=== PATIENT | male | born 1980 | race Caucasian/White ===

== ENCOUNTER 2018-08-02 14:15 | Emergency (ER) | payer OTHER ==
[~2018-08-02] VITALS: Ht 182.9 cm; Wt 128.4 kg
[2018-08-02 14:15] VITALS: BP_SYST 141
[2018-08-02] MEDS ORDERED: LIDOCAINE 1% 10 MG/ML, 20 ML MDV IJ ONE (14:45)
[2018-08-02] MEDS ORDERED: BACITRACIN 1 GM OINT TP ONE (14:45)
[2018-08-02] MEDS ORDERED: IBUPROFEN 800 MG TABLET PO ONE (15:30)
[2018-08-02 15:32] VITALS: BP_SYST 112
== END 2018-08-02 15:32 | disposition home or self-care (01) ==
LOC: SED 14:15
DX: S61.012A Laceration without foreign body of left thumb without damage to nail, initial encounter (principal); R03.0 Elevated blood-pressure reading, without diagnosis of hypertension; W26.0XXA Contact with knife, initial encounter; Y93.89 Activity, other specified; Y92.89 Other specified places as the place of occurrence of the external cause; Y99.8 Other external cause status
CPT/HCPCS: 12001; 99283; J2001

== ENCOUNTER 2018-08-09 11:17 | Emergency (ER) | payer OTHER ==
[~2018-08-09] VITALS: Ht 182.9 cm; Wt 129.3 kg
[2018-08-09 11:21] VITALS: BP_SYST 142
[2018-08-09 12:01] VITALS: BP_SYST 138
== END 2018-08-09 11:59 | disposition home or self-care (01) ==
LOC: SED 11:17
DX: S61.012D Laceration without foreign body of left thumb without damage to nail, subsequent encounter (principal); R03.0 Elevated blood-pressure reading, without diagnosis of hypertension; W26.0XXD Contact with knife, subsequent encounter
CPT/HCPCS: 99281